=== PATIENT | female | born 1960 | race Caucasian/White ===

== ENCOUNTER → 2018-11-12 | Outpatient (CLI) | payer BC ==
--- NOTE | 2018-11-13 09:15 | MM ---
Reason for exam: screening (asymptomatic). Last mammogram was performed 6 years ago. History: Patient is postmenopausal. Family history of breast cancer in paternal grandmother at age 70. Left Mammotome Panel of the left breast, October 11, 2011. Benign stereotactic core biopsy of the left breast, September 06, 2004. Physical Findings: A clinical breast exam by your physician is recommended on an annual basis and results should be correlated with mammographic findings. MG Screening Mammo w CAD Bilateral CC and MLO view(s) were taken. Prior study comparison: November 08, 2012, CAD bilateral diagnostic mammogram. April 05, 2012, left diagnostic mammogram w/CAD. There are scattered fibroglandular densities. Finding: There is a new 5 mm equal density (isodense), lobulated mass in the central position of the left breast. Previous mammotome biopsy in the left breast. ASSESSMENT: Incomplete: need additional imaging evaluation, BI-RAD 0 RECOMMENDATION: Special view mammogram of the left breast. If lesion persists on supplemental views, image directed ultrasound is recommended. [facility] will attempt to contact patient to return for supplemental views and ultrasound if indicated.
--- NOTE | 2018-11-13 17:41 | BD ---
EXAMINATION TYPE: Axial Bone Density DATE OF EXAM: 11/12/2018 COMPARISON: NONE CLINICAL HISTORY: 57-year-old female postmenopausal screening Height: 65 Weight: 170.1 FRAX RISK QUESTIONS: Alcohol (3 or more units per day): no Family History (Parent hip fracture): no Glucocorticoids (More than 3mos): no (Ex: prednisone, prednisolone, methylprednisolone, dexamethasone, and hydrocortisone). History of Fracture in Adulthood: no Secondary Osteoporosis: 1. Type 1 Diabetes: no 2. Hyperthyroidism: no 3. Menopause before 45: no 4. Malnutrition: no 5. Chronic liver disease: no Rheumatoid Arthritis: no Current Tobacco Use: no RISK FACTORS HISTORY OF: Family History of Osteoporosis: no Active: yes Postmenopausal woman: age 48 MEDICATIONS: none Additional History: EXAM MEASUREMENTS: Bone mineral densitometry was performed using the [employer]. Bone mineral density as measured about the Lumbar spine is: ----- L1-L4(G/cm2): 1.125 T Score Values are as follows: ----- L2: -1.9 ----- L3: 0.8 ----- L4: 0.7 ----- L1-L4: -0.5 Bone mineral density : baseline Bone mineral density about the R hip (g/cm2): 0.815 Bone mineral density about the L hip (g/cm2): 0.843 T Score values are as follows: -----R Neck: -1.6 -----L Neck: -1.4 -----R Total: -0.4 -----L Total: -0.3 Bone mineral density : baseline IMPRESSION: Osteopenia (T Score between -2.5 and -1). There is slightly increased risk of fracture and the patient may be considered for treatment. Re-Screen 2-5 years. NOTE: T-SCORE=SD OF THE YOUNG ADULT MEAN.
== END | disposition home or self-care (01) ==
LOC: RADMAMWWP 13:36
PROVIDERS: ATTEND Obstetrics & Gynecology
DX: Z12.31 Encounter for screening mammogram for malignant neoplasm of breast (principal); M85.88 Other specified disorders of bone density and structure, other site; Z78.0 Asymptomatic menopausal state
CPT/HCPCS: 77067; 77080

== ENCOUNTER → 2018-11-14 | Outpatient (CLI) | payer BC ==
--- NOTE | 2018-11-14 11:49 | MM ---
Reason for exam: additional evaluation requested from abnormal screening. Last mammogram was performed less than 1 month ago. History: Patient is postmenopausal. Family history of breast cancer in paternal grandmother at age 70. Left Mammotome Panel of the left breast, October 11, 2011. Benign stereotactic core biopsy of the left breast, September 06, 2004. Physical Findings: Nurse did not find any significant physical abnormalities on exam. MG Work Up Mamm w CAD LT Spot compression CC, spot compression MLO, and ML view(s) were taken of the left breast. Prior study comparison: November 12, 2018, bilateral MG screening mammo w CAD. November 08, 2012, CAD bilateral diagnostic mammogram. Finding: There is a 5 mm equal density (isodense), lobulated mass in the central position of the left breast. These results were verbally communicated with the patient and result sheet given to the patient on 11/14/18. ASSESSMENT: Incomplete: need additional imaging evaluation, BI-RAD 0 RECOMMENDATION: Ultrasound of the left breast.
--- NOTE | 2018-11-14 11:51 | USB ---
Reason for exam: additional evaluation requested from abnormal screening. History: Patient is postmenopausal. Family history of breast cancer in paternal grandmother at age 70. Left Mammotome Panel of the left breast, October 11, 2011. Benign stereotactic core biopsy of the left breast, September 06, 2004. US Breast Workup Limited LT Left limited breast ultrasound including focal area of concern, retroareolar and axilla demonstrates no cystic or solid lesion seen. These results were verbally communicated with the patient and result sheet given to the patient on 11/14/18. ASSESSMENT: Suspicious, BI-RAD 4 RECOMMENDATION: Stereotactic core biopsy of the left breast. Called Dr. Hernandez with mammographic findings and has scheduled an appointment for the patient for 11/19/18 at 2:[address] Tatum. PRELIMINARY REPORT CALLED AND FAXED TO DR. TATUM ON 11/14/18.
== END | disposition home or self-care (01) ==
LOC: RADMAMWWP 10:08
PROVIDERS: ATTEND Obstetrics & Gynecology
DX: R92.8 Other abnormal and inconclusive findings on diagnostic imaging of breast (principal)
CPT/HCPCS: 77065

== ENCOUNTER → 2018-11-22 | Day surgery (SDC) | payer BC ==
[2018-11-22 09:40] VITALS: RESP 16; BMI 28.3
--- NOTE | 2018-11-22 10:37 | USB ---
Reason for exam: additional evaluation requested from abnormal screening. History: Patient is postmenopausal. Family history of breast cancer in paternal grandmother at age 70. Left Mammotome Panel of the left breast, October 11, 2011. Benign stereotactic core biopsy of the left breast, September 06, 2004. US Breast Limited LT Left limited breast ultrasound including focal area of concern, retroareolar and axilla demonstrates a 0.5 x 0.2 x 0.4cm lesion at 2 o'clock. These results were verbally communicated with the patient and result sheet given to the patient on 11/22/18. ASSESSMENT: Suspicious, BI-RAD 4 RECOMMENDATION: Stereotactic core biopsy of the left breast.
--- NOTE | 2018-11-22 11:31 | MM ---
EXAMINATION TYPE: MG stereo VAD BX LT DATE OF EXAM: 11/22/2018 COMPARISON: 11/12/2018, 11/14/2018 CLINICAL HISTORY: Abnormal mammogram TECHNIQUE: Stereotactic guided core biopsy of left breast. FINDINGS: The procedure of stereotactic guided core biopsy was explained to the patient. Benefits, alternatives, and risks were discussed. An informed consent was then obtained. The shortness pathway for biopsy was chosen. Shortness pathway was was chosen. I performed the localization, and performed the remainder of the procedure. A vacuum assisted biopsy gun was used to obtain multiple core samples. The patient tolerated the procedure well without any immediate complication. The patient was kept in the radiology department for short stay after the procedure and then discharged home in stable condition. Targeted density are identified in specimen mammogram. Post biopsy mammogram shows the clip to appear in satisfactory position relative to the targeted area of concern on the preprocedure images. IMPRESSION: SUCCESSFUL, UNCOMPLICATED STEREOTACTIC GUIDED CORE BIOPSY OF AREA OF CONCERN IN THE left BREAST, FULL PATHOLOGY RESULTS TO FOLLOW. Pathology Results: Benign LEFT BREAST, NEEDLE CORE BIOPSY: Fibrocystic change, minute foci of dystrophic calcification present. Recommendation Follow up mammogram of the left breast in 6 months. SILVINO
[2018-11-22 11:33] VITALS: BP 139/77; PULSE 61; TEMP 97.9
== END ==
LOC: RADMAMWWP 09:18
PROVIDERS: ATTEND Student in an Organized Health Care Education/Training Program
DX: N60.12 Diffuse cystic mastopathy of left breast (principal); R92.8 Other abnormal and inconclusive findings on diagnostic imaging of breast
CPT/HCPCS: 88305; 19081; A4648; J2001

== ENCOUNTER → 2019-07-09 | Outpatient (CLI) | payer BC ==
--- NOTE | 2019-07-10 09:17 | MM ---
Reason for exam: follow-up at short interval from prior study. Last mammogram was performed 8 months ago. History: Patient is postmenopausal. Family history of breast cancer in paternal grandmother at age 70. Benign MG stereo VAD BX LT of the left breast, November 22, 2018. Left Mammotome Panel of the left breast, October 11, 2011. Benign stereotactic core biopsy of the left breast, September 06, 2004. Physical Findings: Nurse did not find any significant physical abnormalities on exam. MG Diagnostic Mammo LT w CAD CC and MLO view(s) were taken of the left breast. Prior study comparison: November 14, 2018, left breast MG work up mamm w CAD LT. November 12, 2018, bilateral MG screening mammo w CAD. The breast tissue is heterogeneously dense. This may lower the sensitivity of mammography. No significant new findings when compared with previous films. These results were verbally communicated with the patient and result sheet given to the patient on 07/09/19. ASSESSMENT: Benign, BI-RAD 2 RECOMMENDATION: Return to routine screening mammogram schedule for both breasts. Back on schedule.
== END | disposition home or self-care (01) ==
LOC: RADMAMWWP 15:15
PROVIDERS: ATTEND Student in an Organized Health Care Education/Training Program
DX: R92.8 Other abnormal and inconclusive findings on diagnostic imaging of breast (principal)
CPT/HCPCS: 77065

== ENCOUNTER → 2023-01-19 | Outpatient (CLI) | payer BC ==
--- NOTE | 2023-01-20 07:16 | MM ---
Reason for Exam: Screening (asymptomatic). Last mammogram was performed 4 year(s) and 2 month(s) ago. Patient History: Menarche at age 12. First Full-Term at age 26. Postmenopausal. 11/22/2018, Benign Core Biopsy on the left side. 10/11/2011, Core Biopsy on the Left side. 09/06/2004, Benign Stereotactic Core Biopsy on the left side. Paternal grandmother had breast cancer, age 70. Risk Values: Rylee 5 year model risk: 2.5%. NCI Lifetime model risk: 9.7%. Prior Study Comparison: 11/12/2018 Bilateral Screening Mammogram, [facility]. 11/14/2018 Left Diagnostic Mammogram, [facility]. 07/09/2019 Left Diagnostic Mammogram, [facility]. Tissue Density: There are scattered fibroglandular densities. Findings: Analyzed By CAD. Left breast biopsy clips There is no suspicious group of microcalcifications or new suspicious mass in either breast. Overall Assessment: Negative, BI-RAD 1 Management: Screening Mammogram of both breasts in [address] [facility] will attempt to contact patient to return for supplemental views and ultrasound if indicated. Patient should continue monthly self-breast exams. A clinical breast exam by your physician is recommended on an annual basis. This exam should not preclude additional follow-up of suspicious palpable abnormalities. Note on Rylee scores and lifetime risk: 1. A Rylee score greater than 3% is considered moderate risk. If this is the case, consider specialist referral to assess eligibility for a risk reducing agent. 2. If overall lifetime risk for the development of breast cancer is 20% or higher, the patient may qualify for future screening with alternating mammogram and breast MRI. Electronically signed and approved by: Kedar Reed DO
== END | disposition home or self-care (01) ==
LOC: RADMAMWWP 13:30
PROVIDERS: ATTEND Internal Medicine
DX: Z12.31 Encounter for screening mammogram for malignant neoplasm of breast (principal); Z78.0 Asymptomatic menopausal state; Z80.3 Family history of malignant neoplasm of breast
CPT/HCPCS: 77063; 77067

== ENCOUNTER → 2024-01-01 | Outpatient (CLI) | payer MEDICARE ==
[2024-01-01 11:04] LABS: ALT 569 U/L (4-34); AST 655 U/L (14-36); Alkaline Phosphatase 593 U/L (38-126)
--- NOTE | 2024-01-01 13:19 | US ---
EXAMINATION TYPE: US abdomen complete DATE OF EXAM: 01/01/2024 COMPARISON: NONE CLINICAL INDICATION: Female, 63 years old with history of R74.8 ABNORMAL LEVELS OF OTHER SERUM ENZYME S; Elevated liver enzymes TECHNIQUE: Multiple sonographic images of the abdomen are obtained. FINDINGS: EXAM MEASUREMENTS: Liver Length: 16.5 cm Gallbladder Wall: 0.2 cm CBD: 0.7 cm Spleen: 10.0 cm Right Kidney: 11.3 x 4.5 x 4.5 cm Left Kidney: 11.6 x 4.9 x 5.6 cm Pancreas: Tail obscured by overlying bowel gas Liver: starry sakshi appearance Gallbladder: no evidence of stones Evidence for sonographic Goodman's sign: no CBD: slightly dilated Spleen: granulomas Right Kidney: dilated renal pelvis Left Kidney: no evidence of hydronephrosis Abd Aorta: calcifications noted IMPRESSION: 1. Scattered echogenic foci without shadowing spleen could be some granulomatous change. 2. Scattered echogenicities within the liver without discrete mass. Consider viral infection such as hepatitis. Other infiltrating processes should be considered. Follow-up is recommended.
[2024-01-01 15:36] LABS: GGT 598 U/L (0-38)
[2024-01-02 14:41] LABS: Hepatitis A Antibody IgM Nonreactive (Nonreactive); Hepatitis B Core IgM Nonreactive (Nonreactive); Hepatitis B Surface Antigen Nonreactive (Nonreactive); Hepatitis C IgG Antibody Nonreactive (Nonreactive)
== END | disposition home or self-care (01) ==
LOC: RADUSWWP 10:09
PROVIDERS: ATTEND Internal Medicine
DX: K76.89 Other specified diseases of liver (principal); R74.8 Abnormal levels of other serum enzymes
CPT/HCPCS: 76700; 80074; 82977; 84075; 84450; 84460

== ENCOUNTER → 2024-01-02 | Outpatient (CLI) | payer MEDICARE ==
--- NOTE | 2024-01-02 19:01 | CT ---
EXAMINATION TYPE: CT abdomen w con CT DLP: 513.7 mGycm, Automated exposure control for dose reduction was used. DATE OF EXAM: 01/02/2024 4:52 PM COMPARISON: None. CLINICAL INDICATION:Female, 63 years old with history of R74.8 ABNORMAL LEVELS OF OTHER SERUM ENZYMES ; Elevated liver enzymes TECHNIQUE: Axial CT abdomen w con;Sagittal and coronal reformats were created on a separate workstat ion. Contrast used:100 mL of Isovue 300 with IV Contrast, (none if empty) Oral contrast used: with Oral Contrast (none if empty) FINDINGS: LOWER CHEST: Calcified granulomas scattered throughout the lungs. ABDOMEN LIVER: Scattered calcified granulomas. Diffuse low-attenuation liver parenchyma. GALLBLADDER AND BILE DUCTS: Unremarkable. PANCREAS: Indeterminate low-density area in the pancreatic tail. SPLEEN: Scattered calcified granulomas. ADRENAL GLANDS: Indeterminate left adrenal lesion measuring 33 x 25 mm. No right adrenal lesion.r KIDNEYS AND URETERS: No evidence of hydronephrosis or renal calculus. The ureters are unremarkable. STOMACH AND BOWEL: No evidence of bowel obstruction. PERITONEUM/RETROPERITONEUM: No evidence of pneumoperitoneum or free fluid. VASCULATURE: No evidence of aortic aneurysm. MUSCULOSKELETAL: No acute osseous abnormalities LYMPH NODES: No gross evidence for lymphadenopathy. SOFT TISSUE/ABDOMINAL WALL: Unremarkable IMPRESSION: 1. Hepatic steatosis without evidence for acute process. 2. Indeterminate left adrenal lesion. In the absence of risk factors finding likely represents adren al adenoma. Consider CT adrenal washout study for further characterization. 3. Hypodense area in the pancreatic tail measuring 7 mm further evaluation with MRI MRCP with IV con trast pancreatic mass protocol recommended. 4. Chronic granulomatous disease of the lungs, liver and spleen.
== END | disposition home or self-care (01) ==
LOC: RADCTMAIN 15:54
PROVIDERS: ATTEND Internal Medicine
DX: K76.0 Fatty (change of) liver, not elsewhere classified (principal); J84.10 Pulmonary fibrosis, unspecified; K75.3 Granulomatous hepatitis, not elsewhere classified; R74.8 Abnormal levels of other serum enzymes; D73.89 Other diseases of spleen
CPT/HCPCS: 74160; Q9967